=== PATIENT | male | born 1995 ===

== ENCOUNTER 2016-06-12 21:45 | Emergency (ER) | payer OTHER ==
[2016-06-12] MEDS ORDERED: IBUPROFEN 800 MG TABLET ONE (23:42)
--- NOTE | 2016-06-13 07:44 | RAD ---
Exam: Three-view right ankle COMPARISON: None INDICATION: Right ankle pain and swelling. Twisted ankle and heard a pop. FINDINGS: AP, lateral and oblique views of the right ankle were obtained. Soft tissue swelling is present, most pronounced laterally, and a small joint effusion is seen. No fracture is identified. Ankle mortise is intact. IMPRESSION: Soft tissue swelling with small joint effusion, however no acute osseous abnormality is identified in the right ankle.
== END 2016-06-12 23:52 | disposition home or self-care (01) ==
LOC: ED 21:45
DX: S93.401A Sprain of unspecified ligament of right ankle, initial encounter (principal); X58.XXXA Exposure to other specified factors, initial encounter; Y93.67 Activity, basketball; Y92.310 Basketball court as the place of occurrence of the external cause
CPT/HCPCS: 73610; 99283 ×2; A9270